=== PATIENT | male | born 1990 | race Caucasian/White ===

== ENCOUNTER 2021-05-12 10:22 | Emergency (ER) | payer OTHER ==
--- NOTE | 2021-05-12 10:59 | ER ---
Nurse's Notes [facility] Name: Bryant Buckley Jr Age: 30 yrs Sex: Male : 1990 Arrival Date: 05/12/2021 Time: 10:23 Bed Waiting Private MD: Diagnosis: ED Course: 05/12 10:23 Patient arrived in ED. as 10:40 Patient's name was called from ER lobby. No response. Unable to locate patient. Will jh5 disposition as left without being seen by a provider. 10:57 Patient's name was called from ER lobby. No response. Unable to locate patient. Will jh5 disposition as left without being seen by a provider. Administered Medications: No medications were administered Outcome: 10:58 Patient left the ED. jh5 Signatures: Terrie Blake Jessica, RN RN jh5
== END 2021-05-12 10:58 | disposition left against medical advice (07) ==
LOC: ER 10:22
DX: Z02.9 Encounter for administrative examinations, unspecified (principal)